=== PATIENT | male | born 1935 | race African-American/Black ===

== ENCOUNTER 2018-12-29 17:03 | Inpatient (IN) | payer MEDICARE, MEDICAID ==
--- NOTE | 2018-12-29 17:48 | ED Physician Chart ---
ED Chief Complaint/HPI - Patient Information Date Seen:: 12/29/18 Time Seen:: 17:25 Chief Complaint:: Agitation History of Present Illness:: onset x 3 days of agitation and aggressive behavior; no report of trauma, SIs, H /As, neck pain, C/P, SOB, Abd. Pain, or urinary s/s Allergies:: Allergies Allergy/AdvReac Type Severity Reaction Status Date / Time Penicillins [PCN] Allergy Verified 12/29/18 17:28 Vitals:: Vital Signs - 8 hr 12/29/18 17:29 Temp 97.9 F HR 53 RR 18 BP 117/77 O2 Sat % 97 Historian:: Patient, EMS Review:: Nurse's Note Reviewed, Old Chart Reviewed, EMS run form Reviewed ED Review of Systems - Review of Systems General/Constitutional: No fever, No chills, No weight loss, No weakness, No diaphoresis, No edema, No loss of appetite Skin: No skin lesions, No rash, No bruising Head: No headache, No light-headedness Eyes: No loss of vision, No pain, No diplopia ENT: No earache, No nasal drainage, No sore throat, No tinnitus Neck: No neck pain, No swelling, No thyromegaly, No stiffness, No mass noted Cardio Vascular: No chest pain, No palpitations, No PND, No orthopnea, No edema Pulmonary: No SOB, No cough, No sputum, No wheezing GI: No nausea, No vomiting, No diarrhea, No pain, No melena, No hematochezia, No constipation, No hematemesis G/U: No dysuria, No frequency, No hematuria, No nacturia Musculoskeletal: No bone or joint pain, No back pain, No muscle pain Endocrine: No polyuria, No polydipsia Psychiatric: Prior psych history, No depression, Anxiety, No suicidal ideation, No homicidal ideation, No auditory hallucination, No visual hallucination Hematopoietic: No bruising, No lymphadenopathy Allergic/Immuno: No urticaria, No angioedema Neurological: No syncope, No focal symptoms, No weakness, No paresthesia, No headache, No seizure, No dizziness, No confusion, No vertigo ED Past Medical History - Past Medical History Obtainable: Yes Past Medical History: HTN Family History: HTN Social History: Non Smoker, No Alcohol, No Drug Use, Single, Care Facility Surgical History: None Psychiatricy History: Bipolar Medication: Reviewed ED Physical Exam - Physical Examination General/Constitutional: Awake, Well-developed, well-nourished, Alert, No distress, GCS 15, Non-toxic appearing, Ambulatory Head: Atraumatic Eyes: Lids, conjuctiva normal, PERRL, EOMI Skin: Nl inspection, No rash, No skin lesions, No ecchymosis, Well hydrated, No lymphadenopathy ENMT: External ears, nose nl, TM canals nl, Nasal exam nl, Lips, teeth, gums nl , Oropharynx nl, Tonsils nl Neck: Nontender, Full ROM w/o pain, No JVD, No nuchal rigidity, No bruit, No mass, No stridor Respiratory: Nl effort/Exclusion, Clear to Auscultation, No Wheeze/Rhonchi/Rales Cardio Vascular: RRR, No murmur, gallop, rubs, NL S1 S2, Carotid/Femoral/Distal pulses equal bilaterally GI: No tenderness/rebounding/guarding, No organomegaly, No hernia, Normal BS's, Nondistended, No mass/bruits, No McBurney tenderness : No CVA tenderness Extremities: No tenderness or effusion, Full ROM, normal strength in all extremities, No edema, Normal digits & nails Neuro/Psych: Alert/oriented, DTR's symmetric, Normal sensory exam, Normal motor strength, Judgement/insight normal, Mood normal, Normal gait, No focal deficits Other Neuro/Psych comments:: + Psychomotor Agitation; no SIs; Mood/Affect: Labile Misc: Normal back, No paraspinal tenderness ED Labs/Radiology/EKG Results - Lab Results Comments:: Reviewed - EKG Interpretations EKG Time:: 17:42 Rate & Rhythm: 64; NSR Comments:: PVCs; non-specific st-t changes ED Septic Shock - . Is Septic Shock (SBP<90, OR Lactate>4 mmol\L) present?: No - <6hrs of presentation: Vital Signs: Vital Signs - 8 hr 12/29/18 17:29 Temp 97.9 F HR 53 RR 18 BP 117/77 O2 Sat % 97 ED Reassessment (Disposition) - Reassessment Reassessment Condition:: Improved - Diagnosis Diagnosis:: Agitation; Medical Clearance; Bipolar Disorder - Aftercare/Follow up Instructions Aftercare/Follow-Up Instructions:: Counseled pt regarding lab results/diagnosis & need follow up, Counseled pt & family regarding lab results/diagnosis & need follow up - Patient Disposition Discharge/Transfer:: Acute Care w/in this hosp Admitted to:: [facility] Condition at Disposition:: Stable, Improved
[2018-12-29 18:30] LABS: % BASOPHILS 0.7 % (0.0-2.0); % EOSINOPHILS 1.8 % (0.0-5.0); % LYMPHOCYTES 21.9 % (20.0-50.0); % MONOCYTES 7.5 % (2.0-10.0); % NEUTROPHILS 68.1 % (40.0-80.0); BASOPHILE ABSOLUTE 0.1 Th/cumm (0-0.2); EOSINOPHILE ABSOLUTE 0.1 Th/cmm (0.1-0.4); HEMATOCRIT 44.5 % (41.0-60); HEMOGLOBIN 14.6 gm/dL (12-16); LYMPHOCYTE ABSOLUTE 1.6 Th/cmm (1.5-3.0); MEAN CELL VOLUME 83.9 fl (80-99); MEAN CORPUSCULAR HEMOGLOBIN 27.5 pg (27.0-31.0); MEAN CORPUSCULAR HGB CONC 32.8 pg (28.0-36.0); MEAN PLATELET VOLUME 6.8 fl; MONOCYTE ABSOLUTE 0.6 Th/cmm (0.3-1.0); PLATELET COUNT 232 Th/cmm (150-400); RED CELL DISTRIBUTION WIDTH 14.8 % (11.5-20.0); WHITE BLOOD COUNT 7.4 Th/cmm (4.8-10.8)
[2018-12-29 18:54] LABS: ALBUMIN 3.6 gm/dL (4.2-5.5); ALKALINE PHOSPHATASE 74 U/L (34-104); ANION GAP 12.2 (7.0-16.0); BILIRUBIN,TOTAL 0.4 mg/dL (0.3-1.0); BUN - UREA NITROGEN 16 mg/dL (7-25); CALCIUM SERUM 9.7 mg/dL (8.6-10.3); CARBON DIOXIDE 30.4 mEq/L (21.0-31.0); CHLORIDE 106 mEq/L (98-107); CHOLESTEROL 119 mg/dL (<200); CREATININE - SERUM 1.2 mg/dL (0.7-1.3); GLUCOSE 102 mg/dL (70-105); HDL -HIGH DENSITY LIPOPROTEIN 41 mg/dL (23-92); POTASSIUM SERUM 4.6 mEq/L (3.5-5.1); SGOT 14 U/L (13-39); SGPT/ALT 10 U/L (7-52); SODIUM SERUM 144 mEq/L (136-145); TOTAL PROTEIN,SERUM 7.1 gm/dL (6.0-8.3); TRIGLYCERIDES 112 mg/dL (<150)
[2018-12-29 18:55] LABS: ACETAMINOPHEN < 10.0 ug/mL (10.0-30.0); SALICYLATES (ASPIRIN) < 25.0 mg/L (30.0-100.0)
[2018-12-29 20:51] VITALS: BP 156/74
[2018-12-29] MEDS ORDERED: Magnesium Hydroxide (MOM) 30 mL UDC PO PRN (22:35)
[2018-12-30] MEDS: Pantoprazole 40 mg EC Tab PO SCH (06:48)
[2018-12-30] MEDS: Multivitamin Tab PO SCH (08:44)
[2018-12-30] MEDS: Aspirin 81mg Chewable Tab PO SCH (08:45)
[2018-12-30] MEDS: Apixaban 5 MG TABLET PO SCH ×3 (08:49→16:26)
[2018-12-30] MEDS: Vitamin B Complex w/Vitamin C Tab PO SCH (08:57)
[2018-12-30] MEDS ORDERED: Potassium Chloride 20 mEq ER Tab PO SCH (09:00)
--- NOTE | 2018-12-30 15:30 | History & Physical ---
ADMIT DATE: 12/29/2018 CHIEF COMPLAINT: Medical evaluation and clearance. HISTORY OF PRESENT ILLNESS: An 83-year-old male with history of right lower extremity DVT, atrial fibrillation, CHF, seizure and BPH, dementia, admitted under the service of Dr. Wise. The patient denies chest pain, shortness of breath. PAST MEDICAL HISTORY: As mentioned in history of present illness. PAST SURGICAL HISTORY: Unable to obtain from the patient. ALLERGIES: PENICILLIN. MEDICATIONS: Tylenol, Eliquis, amiodarone, aspirin, vitamin D3, Colace, Aricept, Avodart, Lasix and potassium, ___, Keppra, magnesium, Namenda, omeprazole, CellCept, vitamin D complex. FAMILY HISTORY: Noncontributory. SOCIAL HISTORY: The patient is a jail patient requiring 24-hour total care. REVIEW OF SYSTEMS: This is limited to the patient's current mental state. We will try to obtain more detailed review of system ____ family members. 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 We will also try to get information from nursing staff at the facility [facility] [phone]. PHYSICAL EXAMINATION: VITAL SIGNS: Blood pressure 133/78, respirations 20, pulse 57-70, temperature 97.8. GENERAL: Elderly male who appears his stated age. NECK: Supple. No mass. LUNGS: Decreased breath sounds, few rhonchi. HEART: Irregular regular. Systolic ejection murmur. ABDOMEN: Soft, globular. EXTREMITIES: Positive excoriations. NEUROLOGIC: Positive contracture. LABORATORY DATA: WBC 7.4, hemoglobin 14, platelets 232. Sodium 140, potassium 4.6, BUN 16, creatinine 1.2. Albumin 3.6, pulse 119. ASSESSMENT AND PLAN: Dementia and a history of DVT, right lower extremity for exacerbation, CHF, seizure, BPH, GERD. Continue the patient on low sodium, low cholesterol diet, continue on anticoagulation, ____ bleeding. Continue antiepileptic medication. Continue providing him and we will discontinue on potassium, continue on diuretic for now. We will follow the patient closely. JOB# [id number]
[2018-12-31] MEDS: Pantoprazole 40 mg EC Tab PO SCH (06:40)
[2018-12-31] MEDS: Vitamin B Complex w/Vitamin C Tab PO SCH (09:08)
[2018-12-31] MEDS: Aspirin 81mg Chewable Tab PO SCH (09:09)
[2018-12-31] MEDS: Multivitamin Tab PO SCH (09:17)
[2018-12-31] MEDS: Apixaban 5 MG TABLET PO SCH ×2 (09:40→16:42)
--- NOTE | 2018-12-31 11:47 | Internal Medicine Prog Note ---
Internal Medicine Subjective - Subjective Patient seen and examined:: with staff, chart reviewed Patient is:: awake, verbal, interactive, in bed Per staff patient has:: no adverse event, no episodes of fall, tolerating meds Internal Medicine Objective - Results Result Diagrams: 12/29/18 18:17 12/29/18 18:17 Recent Labs: Laboratory Last Values WBC 7.4 Th/cmm (4.8-10.8) 12/29/18 18:17 RBC 5.30 Mil/cmm (3.80-5.80) 12/29/18 18:17 Hgb 14.6 gm/dL (12-16) 12/29/18 18:17 Hct 44.5 % (41.0-60) 12/29/18 18:17 MCV 83.9 fl (80-99) 12/29/18 18:17 MCH 27.5 pg (27.0-31.0) 12/29/18 18:17 MCHC Differential 32.8 pg (28.0-36.0) 12/29/18 18:17 RDW 14.8 % (11.5-20.0) 12/29/18 18:17 Plt Count 232 Th/cmm (150-400) 12/29/18 18:17 MPV 6.8 fl 12/29/18 18:17 Neutrophils % 68.1 % (40.0-80.0) 12/29/18 18:17 Lymphocytes % 21.9 % (20.0-50.0) 12/29/18 18:17 Monocytes % 7.5 % (2.0-10.0) 12/29/18 18:17 Eosinophils % 1.8 % (0.0-5.0) 12/29/18 18:17 Basophils % 0.7 % (0.0-2.0) 12/29/18 18:17 Sodium 144 mEq/L (136-145) 12/29/18 18:17 Potassium 4.6 mEq/L (3.5-5.1) 12/29/18 18:17 Chloride 106 mEq/L (98-107) 12/29/18 18:17 Carbon Dioxide 30.4 mEq/L (21.0-31.0) 12/29/18 18:17 Anion Gap 12.2 (7.0-16.0) 12/29/18 18:17 BUN 16 mg/dL (7-25) 12/29/18 18:17 Creatinine 1.2 mg/dL (0.7-1.3) 12/29/18 18:17 Est GFR ( Amer) TNP 12/29/18 18:17 Est GFR (Non-Af Amer) TNP 12/29/18 18:17 BUN/Creatinine Ratio 13.3 12/29/18 18:17 Glucose 102 mg/dL (70-105) 12/29/18 18:17 Calcium 9.7 mg/dL (8.6-10.3) 12/29/18 18:17 Total Bilirubin 0.4 mg/dL (0.3-1.0) 12/29/18 18:17 AST 14 U/L (13-39) 12/29/18 18:17 ALT 10 U/L (7-52) 12/29/18 18:17 Alkaline Phosphatase 74 U/L (34-104) 12/29/18 18:17 Troponin I 0.01 ng/mL (0.01-0.05) 12/29/18 18:17 Total Protein 7.1 gm/dL (6.0-8.3) 12/29/18 18:17 Albumin 3.6 gm/dL (4.2-5.5) L 12/29/18 18:17 Globulin 3.5 gm/dL 12/29/18 18:17 Albumin/Globulin Ratio 1.0 (1.0-1.8) 12/29/18 18:17 Triglycerides 112 mg/dL (<150) 12/29/18 18:17 Cholesterol 119 mg/dL (<200) 12/29/18 18:17 LDL Cholesterol Direct 38 mg/dL (75-193) L 12/29/18 18:17 HDL Cholesterol 41 mg/dL (23-92) 12/29/18 18:17 TSH 1.50 uIU/ml (0.34-5.60) 12/29/18 18:17 Salicylates < 25.0 mg/L (30.0-100.0) L 12/29/18 18:17 Acetaminophen < 10.0 ug/mL (10.0-30.0) L 12/29/18 18:17 Ethyl Alcohol < 10 mg/dL (0-10) 12/29/18 18:17 - Physical Exam Vitals and I&O: Vital Signs Temp 97.8 F 12/31/18 06:50 Pulse 50 12/31/18 06:50 Resp 18 12/31/18 06:50 BP 112/73 12/31/18 09:08 Pulse Ox 98 12/31/18 06:50 Intake & Output 12/30/18 12/31/18 12/31/18 18:59 06:59 18:59 Intake Total 480 Balance 480 Intake: Oral 480 Other: # Voids 2 # Bowel Movements 0 Active Medications: Current Medications Acetaminophen (Tylenol) 650 mg PO Q6H PRN PRN Reason: pain/fever>100 Amiodarone HCl (Cordarone) 200 mg PO DAILY [facility] Stop: 02/28/19 08:59 Last Admin: 12/31/18 09:09 Dose: Not Given Aspirin (Aspirin Chewable) 81 mg PO DAILY [facility] Stop: 02/28/19 08:59 Last Admin: 12/31/18 09:09 Dose: 81 mg Cholecalciferol (Vitamin D3) 2,000 iu PO DAILY [facility] Stop: 02/28/19 08:59 Last Admin: 12/31/18 09:08 Dose: 2,000 iu Docusate Sodium (Colace) 100 mg PO BID [facility] Stop: 02/28/19 08:59 Last Admin: 12/31/18 09:08 Dose: 100 mg Donepezil HCl (Aricept) 5 mg PO HS [facility] Stop: 02/27/19 20:59 Last Admin: 12/30/18 20:32 Dose: 5 mg Dutasteride (Avodart) 0.5 mg PO DAILY [facility]; Protocol Stop: 02/28/19 08:59 Last Admin: 12/31/18 09:40 Dose: 0.5 mg Furosemide (Lasix) 20 mg PO DAILY [facility] Stop: 02/28/19 08:59 Last Admin: 12/31/18 09:08 Dose: 20 mg Hydrocortisone (Anusol-Hc) 25 mg RC HS PRN PRN Reason: Hemorrhoids Stop: 02/27/19 22:34 Levetiracetam (Keppra) 500 mg PO BID [facility] Stop: 02/28/19 08:59 Last Admin: 12/31/18 09:08 Dose: 500 mg Lorazepam (Ativan) 0.5 mg PO Q4HR PRN; Protocol PRN Reason: Anxiety Stop: 01/28/19 20:54 Magnesium Hydroxide (Milk Of Magnesia) 30 ml PO DAILY PRN PRN Reason: Constipation Stop: 02/27/19 22:34 Magnesium Oxide (Mag-Oxide) 400 mg PO DAILY [facility] Stop: 02/28/19 08:59 Last Admin: 12/31/18 09:09 Dose: 400 mg Memantine (Namenda) 10 mg PO BID [facility] Stop: 02/28/19 08:59 Last Admin: 12/31/18 09:09 Dose: 10 mg Multivitamins/Vitamin C (Theragran) 1 tab PO DAILY [facility] Stop: 02/28/19 08:59 Last Admin: 12/31/18 09:17 Dose: 1 tab Pantoprazole Sodium (Protonix) 40 mg PO QDAC [facility] Stop: 02/28/19 07:29 Last Admin: 12/31/18 06:40 Dose: 40 mg Tamsulosin HCl (Flomax) 0.4 mg PO HS [facility] Stop: 02/28/19 20:59 Last Admin: 12/30/18 20:32 Dose: 0.4 mg Vitamin B Complex/Vit C/Folic Acid (Vitamin B Complex W/Vitamin C) 1 tab PO DAILY [facility] Stop: 02/28/19 08:59 Last Admin: 12/31/18 09:08 Dose: 1 tab Zolpidem Tartrate (Ambien) 5 mg PO HS PRN PRN Reason: Insomnia Stop: 02/27/19 20:54 Last Admin: 12/29/18 21:56 Dose: 5 mg General: demented HEENT: NC/AT, EOMI Neck: Supple Lungs: CTAB Cardiovascular: RRR, Normal S1, Normal S2, with murmur Abdomen: soft, globular, positive bowel sound Extremities: excoriation, contracture Neurological: no change Internal Medicine Assmt/Plan - Assessment Assessment: ASSESSMENT AND PLAN: Dementia and a history of DVT, right lower extremity for exacerbation, CHF, seizure, BPH, GERD. - Plan Plan: PLAN: Continue the patient on low sodium, low cholesterol diet, continue on anticoagulation, ___monitor for_ bleeding. Continue antiepileptic medication. Continue providing him and we will discontinue on potassium, continue on diuretic for now. We will follow the patient closely.
[2019-01-01] MEDS: Pantoprazole 40 mg EC Tab PO SCH (06:43)
[2019-01-01] MEDS: Vitamin B Complex w/Vitamin C Tab PO SCH (08:34)
[2019-01-01] MEDS: Apixaban 5 MG TABLET PO SCH ×2 (08:34→16:43)
[2019-01-01] MEDS: Multivitamin Tab PO SCH (08:37)
[2019-01-01] MEDS: Aspirin 81mg Chewable Tab PO SCH (08:38)
--- NOTE | 2019-01-01 10:34 | Internal Medicine Prog Note ---
Internal Medicine Subjective - Subjective Patient seen and examined:: with staff, chart reviewed Patient is:: awake, verbal, interactive, in bed Per staff patient has:: no adverse event, no episodes of fall, tolerating meds Internal Medicine Objective - Results Result Diagrams: 12/29/18 18:17 12/29/18 18:17 Recent Labs: Laboratory Last Values WBC 7.4 Th/cmm (4.8-10.8) 12/29/18 18:17 RBC 5.30 Mil/cmm (3.80-5.80) 12/29/18 18:17 Hgb 14.6 gm/dL (12-16) 12/29/18 18:17 Hct 44.5 % (41.0-60) 12/29/18 18:17 MCV 83.9 fl (80-99) 12/29/18 18:17 MCH 27.5 pg (27.0-31.0) 12/29/18 18:17 MCHC Differential 32.8 pg (28.0-36.0) 12/29/18 18:17 RDW 14.8 % (11.5-20.0) 12/29/18 18:17 Plt Count 232 Th/cmm (150-400) 12/29/18 18:17 MPV 6.8 fl 12/29/18 18:17 Neutrophils % 68.1 % (40.0-80.0) 12/29/18 18:17 Lymphocytes % 21.9 % (20.0-50.0) 12/29/18 18:17 Monocytes % 7.5 % (2.0-10.0) 12/29/18 18:17 Eosinophils % 1.8 % (0.0-5.0) 12/29/18 18:17 Basophils % 0.7 % (0.0-2.0) 12/29/18 18:17 Sodium 144 mEq/L (136-145) 12/29/18 18:17 Potassium 4.6 mEq/L (3.5-5.1) 12/29/18 18:17 Chloride 106 mEq/L (98-107) 12/29/18 18:17 Carbon Dioxide 30.4 mEq/L (21.0-31.0) 12/29/18 18:17 Anion Gap 12.2 (7.0-16.0) 12/29/18 18:17 BUN 16 mg/dL (7-25) 12/29/18 18:17 Creatinine 1.2 mg/dL (0.7-1.3) 12/29/18 18:17 Est GFR ( Amer) TNP 12/29/18 18:17 Est GFR (Non-Af Amer) TNP 12/29/18 18:17 BUN/Creatinine Ratio 13.3 12/29/18 18:17 Glucose 102 mg/dL (70-105) 12/29/18 18:17 Calcium 9.7 mg/dL (8.6-10.3) 12/29/18 18:17 Total Bilirubin 0.4 mg/dL (0.3-1.0) 12/29/18 18:17 AST 14 U/L (13-39) 12/29/18 18:17 ALT 10 U/L (7-52) 12/29/18 18:17 Alkaline Phosphatase 74 U/L (34-104) 12/29/18 18:17 Troponin I 0.01 ng/mL (0.01-0.05) 12/29/18 18:17 Total Protein 7.1 gm/dL (6.0-8.3) 12/29/18 18:17 Albumin 3.6 gm/dL (4.2-5.5) L 12/29/18 18:17 Globulin 3.5 gm/dL 12/29/18 18:17 Albumin/Globulin Ratio 1.0 (1.0-1.8) 12/29/18 18:17 Triglycerides 112 mg/dL (<150) 12/29/18 18:17 Cholesterol 119 mg/dL (<200) 12/29/18 18:17 LDL Cholesterol Direct 38 mg/dL (75-193) L 12/29/18 18:17 HDL Cholesterol 41 mg/dL (23-92) 12/29/18 18:17 TSH 1.50 uIU/ml (0.34-5.60) 12/29/18 18:17 Salicylates < 25.0 mg/L (30.0-100.0) L 12/29/18 18:17 Acetaminophen < 10.0 ug/mL (10.0-30.0) L 12/29/18 18:17 Ethyl Alcohol < 10 mg/dL (0-10) 12/29/18 18:17 RPR NONREACTIVE (NONREACTIVE) 12/29/18 18:17 - Physical Exam Vitals and I&O: Vital Signs Temp 96.4 F 01/01/19 06:51 Pulse 55 01/01/19 08:38 Resp 20 01/01/19 06:51 BP 117/55 01/01/19 08:37 Pulse Ox 96 01/01/19 06:51 Intake & Output 12/31/18 01/01/19 01/01/19 18:59 06:59 18:59 Intake Total 600 120 Balance 600 120 Intake: Oral 600 120 Other: # Voids 2 1 # Bowel Movements 0 Active Medications: Current Medications Acetaminophen (Tylenol) 650 mg PO Q6H PRN PRN Reason: pain/fever>100 Amiodarone HCl (Cordarone) 200 mg PO DAILY [facility] Stop: 02/28/19 08:59 Last Admin: 01/01/19 08:38 Dose: Not Given Aspirin (Aspirin Chewable) 81 mg PO DAILY [facility] Stop: 02/28/19 08:59 Last Admin: 01/01/19 08:38 Dose: 81 mg Cholecalciferol (Vitamin D3) 2,000 iu PO DAILY [facility] Stop: 02/28/19 08:59 Last Admin: 01/01/19 08:35 Dose: 2,000 iu Docusate Sodium (Colace) 100 mg PO BID [facility] Stop: 02/28/19 08:59 Last Admin: 01/01/19 08:35 Dose: 100 mg Donepezil HCl (Aricept) 5 mg PO HS [facility] Stop: 02/27/19 20:59 Last Admin: 12/31/18 21:44 Dose: 5 mg Dutasteride (Avodart) 0.5 mg PO DAILY [facility]; Protocol Stop: 02/28/19 08:59 Last Admin: 01/01/19 08:38 Dose: 0.5 mg Furosemide (Lasix) 20 mg PO DAILY [facility] Stop: 02/28/19 08:59 Last Admin: 01/01/19 08:37 Dose: 20 mg Hydrocortisone (Anusol-Hc) 25 mg RC HS PRN PRN Reason: Hemorrhoids Stop: 02/27/19 22:34 Levetiracetam (Keppra) 500 mg PO BID [facility] Stop: 02/28/19 08:59 Last Admin: 01/01/19 08:36 Dose: 500 mg Lorazepam (Ativan) 0.5 mg PO Q4HR PRN; Protocol PRN Reason: Anxiety Stop: 01/28/19 20:54 Magnesium Hydroxide (Milk Of Magnesia) 30 ml PO DAILY PRN PRN Reason: Constipation Stop: 02/27/19 22:34 Magnesium Oxide (Mag-Oxide) 400 mg PO DAILY [facility] Stop: 02/28/19 08:59 Last Admin: 01/01/19 08:37 Dose: 400 mg Medroxyprogesterone Acetate (Provera) 5 mg PO DAILY [facility]; Protocol Stop: 03/02/19 08:59 Last Admin: 01/01/19 08:36 Dose: 5 mg Memantine (Namenda) 10 mg PO BID [facility] Stop: 02/28/19 08:59 Last Admin: 01/01/19 08:36 Dose: 10 mg Multivitamins/Vitamin C (Theragran) 1 tab PO DAILY [facility] Stop: 02/28/19 08:59 Last Admin: 01/01/19 08:37 Dose: 1 tab Pantoprazole Sodium (Protonix) 40 mg PO QDAC [facility] Stop: 02/28/19 07:29 Last Admin: 01/01/19 06:43 Dose: 40 mg Tamsulosin HCl (Flomax) 0.4 mg PO HS [facility] Stop: 02/28/19 20:59 Last Admin: 12/31/18 21:44 Dose: 0.4 mg Vitamin B Complex/Vit C/Folic Acid (Vitamin B Complex W/Vitamin C) 1 tab PO DAILY [facility] Stop: 02/28/19 08:59 Last Admin: 01/01/19 08:34 Dose: 1 tab Zolpidem Tartrate (Ambien) 5 mg PO HS PRN PRN Reason: Insomnia Stop: 02/27/19 20:54 Last Admin: 12/29/18 21:56 Dose: 5 mg General: demented HEENT: NC/AT, EOMI Neck: Supple Lungs: CTAB Cardiovascular: RRR, Normal S1, Normal S2, with murmur Abdomen: soft, globular, positive bowel sound Extremities: excoriation, contracture Neurological: no change Internal Medicine Assmt/Plan - Assessment Assessment: ASSESSMENT AND PLAN: Dementia and a history of DVT, right lower extremity for exacerbation, CHF, seizure, BPH, GERD. - Plan Plan: PLAN: Continue the patient on low sodium, low cholesterol diet, continue on anticoagulation, ___monitor for_ bleeding. Continue antiepileptic medication. Continue providing him and we will discontinue on potassium, continue on diuretic for now. We will follow the patient closely.
[2019-01-02] MEDS: Pantoprazole 40 mg EC Tab PO SCH (06:43)
[2019-01-02] MEDS: Multivitamin Tab PO SCH (09:06)
[2019-01-02] MEDS: Vitamin B Complex w/Vitamin C Tab PO SCH (09:06)
[2019-01-02] MEDS: Apixaban 5 MG TABLET PO SCH ×2 (09:07→17:58)
[2019-01-02] MEDS: Aspirin 81mg Chewable Tab PO SCH (09:07)
--- NOTE | 2019-01-02 10:18 | Internal Medicine Prog Note ---
Internal Medicine Subjective - Subjective Service Date: 01/02/19 Patient is:: awake, verbal, interactive, in bed Per staff patient has:: no adverse event, no episodes of fall, tolerating meds Internal Medicine Objective - Results Result Diagrams: 12/29/18 18:17 12/29/18 18:17 Recent Labs: Laboratory Last Values WBC 7.4 Th/cmm (4.8-10.8) 12/29/18 18:17 RBC 5.30 Mil/cmm (3.80-5.80) 12/29/18 18:17 Hgb 14.6 gm/dL (12-16) 12/29/18 18:17 Hct 44.5 % (41.0-60) 12/29/18 18:17 MCV 83.9 fl (80-99) 12/29/18 18:17 MCH 27.5 pg (27.0-31.0) 12/29/18 18:17 MCHC Differential 32.8 pg (28.0-36.0) 12/29/18 18:17 RDW 14.8 % (11.5-20.0) 12/29/18 18:17 Plt Count 232 Th/cmm (150-400) 12/29/18 18:17 MPV 6.8 fl 12/29/18 18:17 Neutrophils % 68.1 % (40.0-80.0) 12/29/18 18:17 Lymphocytes % 21.9 % (20.0-50.0) 12/29/18 18:17 Monocytes % 7.5 % (2.0-10.0) 12/29/18 18:17 Eosinophils % 1.8 % (0.0-5.0) 12/29/18 18:17 Basophils % 0.7 % (0.0-2.0) 12/29/18 18:17 Sodium 144 mEq/L (136-145) 12/29/18 18:17 Potassium 4.6 mEq/L (3.5-5.1) 12/29/18 18:17 Chloride 106 mEq/L (98-107) 12/29/18 18:17 Carbon Dioxide 30.4 mEq/L (21.0-31.0) 12/29/18 18:17 Anion Gap 12.2 (7.0-16.0) 12/29/18 18:17 BUN 16 mg/dL (7-25) 12/29/18 18:17 Creatinine 1.2 mg/dL (0.7-1.3) 12/29/18 18:17 Est GFR ( Amer) TNP 12/29/18 18:17 Est GFR (Non-Af Amer) TNP 12/29/18 18:17 BUN/Creatinine Ratio 13.3 12/29/18 18:17 Glucose 102 mg/dL (70-105) 12/29/18 18:17 Calcium 9.7 mg/dL (8.6-10.3) 12/29/18 18:17 Total Bilirubin 0.4 mg/dL (0.3-1.0) 12/29/18 18:17 AST 14 U/L (13-39) 12/29/18 18:17 ALT 10 U/L (7-52) 12/29/18 18:17 Alkaline Phosphatase 74 U/L (34-104) 12/29/18 18:17 Troponin I 0.01 ng/mL (0.01-0.05) 12/29/18 18:17 Total Protein 7.1 gm/dL (6.0-8.3) 12/29/18 18:17 Albumin 3.6 gm/dL (4.2-5.5) L 12/29/18 18:17 Globulin 3.5 gm/dL 12/29/18 18:17 Albumin/Globulin Ratio 1.0 (1.0-1.8) 12/29/18 18:17 Triglycerides 112 mg/dL (<150) 12/29/18 18:17 Cholesterol 119 mg/dL (<200) 12/29/18 18:17 LDL Cholesterol Direct 38 mg/dL (75-193) L 12/29/18 18:17 HDL Cholesterol 41 mg/dL (23-92) 12/29/18 18:17 TSH 1.50 uIU/ml (0.34-5.60) 12/29/18 18:17 Salicylates < 25.0 mg/L (30.0-100.0) L 12/29/18 18:17 Acetaminophen < 10.0 ug/mL (10.0-30.0) L 12/29/18 18:17 Ethyl Alcohol < 10 mg/dL (0-10) 12/29/18 18:17 RPR NONREACTIVE (NONREACTIVE) 12/29/18 18:17 - Physical Exam Vitals and I&O: Vital Signs Temp 96.3 F 01/02/19 01:33 Pulse 64 01/02/19 09:07 Resp 19 01/02/19 01:33 BP 110/68 01/02/19 09:08 Pulse Ox 97 01/02/19 01:33 Intake & Output 01/01/19 01/02/19 01/02/19 18:59 06:59 18:59 Intake Total 1300 100 Balance 1300 100 Intake: Oral 1300 100 Other: # Voids 3 1 # Bowel Movements 0 Active Medications: Current Medications Acetaminophen (Tylenol) 650 mg PO Q6H PRN PRN Reason: pain/fever>100 Amiodarone HCl (Cordarone) 200 mg PO DAILY [facility] Stop: 02/28/19 08:59 Last Admin: 01/02/19 09:07 Dose: 200 mg Aspirin (Aspirin Chewable) 81 mg PO DAILY [facility] Stop: 02/28/19 08:59 Last Admin: 01/02/19 09:07 Dose: 81 mg Cholecalciferol (Vitamin D3) 2,000 iu PO DAILY [facility] Stop: 02/28/19 08:59 Last Admin: 01/02/19 09:07 Dose: 2,000 iu Docusate Sodium (Colace) 100 mg PO BID [facility] Stop: 02/28/19 08:59 Last Admin: 01/02/19 09:06 Dose: 100 mg Donepezil HCl (Aricept) 5 mg PO HS [facility] Stop: 02/27/19 20:59 Last Admin: 01/01/19 21:01 Dose: 5 mg Dutasteride (Avodart) 0.5 mg PO DAILY [facility]; Protocol Stop: 02/28/19 08:59 Last Admin: 01/02/19 09:07 Dose: 0.5 mg Furosemide (Lasix) 20 mg PO DAILY [facility] Stop: 02/28/19 08:59 Last Admin: 01/02/19 09:08 Dose: 20 mg Hydrocortisone (Anusol-Hc) 25 mg RC HS PRN PRN Reason: Hemorrhoids Stop: 02/27/19 22:34 Levetiracetam (Keppra) 500 mg PO BID [facility] Stop: 02/28/19 08:59 Last Admin: 01/02/19 09:07 Dose: 500 mg Lorazepam (Ativan) 0.5 mg PO Q4HR PRN; Protocol PRN Reason: Anxiety Stop: 01/28/19 20:54 Magnesium Hydroxide (Milk Of Magnesia) 30 ml PO DAILY PRN PRN Reason: Constipation Stop: 02/27/19 22:34 Magnesium Oxide (Mag-Oxide) 400 mg PO DAILY [facility] Stop: 02/28/19 08:59 Last Admin: 01/02/19 09:09 Dose: 400 mg Medroxyprogesterone Acetate (Provera) 5 mg PO DAILY [facility]; Protocol Stop: 03/02/19 08:59 Last Admin: 01/02/19 09:07 Dose: 5 mg Memantine (Namenda) 10 mg PO BID [facility] Stop: 02/28/19 08:59 Last Admin: 01/02/19 09:07 Dose: 10 mg Multivitamins/Vitamin C (Theragran) 1 tab PO DAILY [facility] Stop: 02/28/19 08:59 Last Admin: 01/02/19 09:06 Dose: 1 tab Pantoprazole Sodium (Protonix) 40 mg PO QDAC [facility] Stop: 02/28/19 07:29 Last Admin: 01/02/19 06:43 Dose: 40 mg Tamsulosin HCl (Flomax) 0.4 mg PO HS [facility] Stop: 02/28/19 20:59 Last Admin: 01/01/19 21:01 Dose: 0.4 mg Vitamin B Complex/Vit C/Folic Acid (Vitamin B Complex W/Vitamin C) 1 tab PO DAILY [facility] Stop: 02/28/19 08:59 Last Admin: 01/02/19 09:06 Dose: 1 tab Zolpidem Tartrate (Ambien) 5 mg PO HS PRN PRN Reason: Insomnia Stop: 02/27/19 20:54 Last Admin: 12/29/18 21:56 Dose: 5 mg General: demented HEENT: NC/AT, EOMI Neck: Supple Lungs: CTAB Cardiovascular: RRR, Normal S1, Normal S2, with murmur Abdomen: soft, globular, positive bowel sound Extremities: excoriation, contracture Neurological: no change Internal Medicine Assmt/Plan - Assessment Assessment: Dementia and a history of DVT, right lower extremity for exacerbation, CHF, seizure, BPH, GERD. - Plan Plan: PLAN: Continue the patient on low sodium, low cholesterol diet, continue on anticoagulation, ___monitor for_ bleeding. Continue antiepileptic medication. Continue providing him and we will discontinue on potassium, continue on diuretic for now. We will follow the patient closely. Nutritional Asmnt/Malnutr-PDOC - Dietary Evaluation Malnutrition Findings (Please click <Entered> for more info): Nutritional Asmnt/Malnutrition Start: 01/02/19 09: 49 Text: Status: Active Freq: Protocol: Document 01/02/19 09:49 [facility] (Rec: 01/02/19 10:15 MMULDEQUAN TINSLEY- [email or web address]) Nutritional Asmnt/Malnutrition Patient General Information Nutritional Screening Moderate Risk Diagnosis Psychosis Pertinent Medical Hx/Surgical Hx right lower extremity DVT, atrial fibrillation, CHF, seizure, BPH, dementia Subjective Information Per nursing notes, patient selectively mute, answers questions with nodding. Current Diet Order/ Nutrition Support Mechanical soft, no added sodium Patient / S.O Not Indicated Pertinent Medications Vitamin D, Colace, lasix, MOM, Mag ox, Theragran, protonix, vitamin B complex with C Pertinent Labs (12/29) Albumin 3.6 Nutritional Hx/Data Height 5 ft 10 in Height (Calculated Centimeters) 177.8 Current Weight (lbs) 184 lb Weight (Calculated Kilograms) 83.5 Weight (Calculated Grams) 38722.0 [place] Body Weight 166 % [place] Body Weight 110 Body Mass Index (BMI) 26.4 Recent Weight Change No Weight Status Overweight GI Symptoms GI Symptoms None Last BM none noted since admission Difficult in: None Food Allergies No Cultural/Ethnic/Temple Belief none indicated Usual diet at home unknown Skin Integrity/Comment: Milind 14, intact Current %PO Fair (50-74%) Estimated Nutritional Goals BEE in Kcals: Using Current wt Calories/Kcals/Kg CBW 83.6kg 23-27 kcal/kg Kcals Calculated ~2298-0415 kcal/day Protein: Using Current wt Protein g/k.8-1 gm/kg Protein Calculated 65-85gm/day Fluid: ml ~5258-1443 ml/day Nutritional Problem 1. Problem Problem Inadequate oral intake related to Etiology Possible confusion/poor appetite aeb Signs/Symptoms: PO ranging 0-100% of meals, averaging ~50%. Intervention/Recommendation Comments 1. Continue mechanical soft, no added sodium diet as tolerated by patient. 2. Provide assistance with meals as needed and encourage oral intake. Intake seems to be improving. Re-evaluate need for supplements at F/U. Expected Outcomes/Goals Expected Outcomes/Goals Oral intake >75% of meals, weight stable, nutrition related labs WNL F/U MR
--- NOTE | 2019-01-02 11:23 | Progress Notes ---
DATE: SUBJECTIVE: The patient was resting in bed. When approached, the patient has a towel covered his face and head. The patient removed the towel from his face. The patient was not very verbal today. The patient indicated that he has been eating and sleeping okay. When asked why he has been masturbating and exposing himself at the facility where he was prior to coming here, the patient just shrugged his shoulder. When asked if he exposed himself here, the patient shook his head. When asked why he would do such a thing, the patient shrugged his shoulder. When asked if any family been here to see him, the patient shook his head. OBJECTIVE: The patient continued to be calm and pleasant and cooperative. The patient is less verbal today. The staff reported that the patient has been doing okay. The patient has been staying in bed most of the time. The patient ate well at breakfast, but not as much at lunchtime. Staff reported that the patient has been cooperative with care and treatment taking his medications. ASSESSMENT: Sexual disorder, not otherwise specified. Dementia, Alzheimer dementia with behavioral disturbance. The patient appeared to be doing okay at this time. PLAN: We will continue the patient on Provera and monitor the patient response to the medication. JOB# [id number]
--- NOTE | 2019-01-02 22:26 | Progress Notes ---
DATE: 01/02/2019 SUBJECTIVE: The patient was resting in bed, alert, pleasant. The patient did not have the towel covered his face and head like yesterday. When asked if he remembers seeing this science writer, the patient shook his head. The patient reported that he had breakfast and he slept pretty well. The patient denied any inappropriate sexual behavior. The patient indicated no friends or family visited since he has been here. The patient was not able to say where he was living prior to coming here. When asked if he had exposed himself or masturbated since he has been here, the patient denied. When asked why he did that at the facility, the patient shook his head. OBJECTIVE: The patient continued to be cooperative and pleasant. The patient smiled easily when talked to. The patient denied any hallucination or delusion. Staff reported that the patient has been doing okay, has been cooperative with care and treatment. The patient has been eating and sleeping well. ASSESSMENT: Sexual disorder, not otherwise specified; Alzheimer dementia with behavioral disturbance; impulse control disorder, not otherwise specified; personality change due to medical condition. The patient continued to be doing okay with no recurrent episodes of inappropriate sexual behavior here. PLAN: We will continue the patient on Provera and monitor any side effects. JOB# [id number] ENRIQUE
[2019-01-03] MEDS: Pantoprazole 40 mg EC Tab PO SCH (06:35)
[2019-01-03] MEDS: Apixaban 5 MG TABLET PO SCH ×2 (08:23→17:24)
[2019-01-03] MEDS: Aspirin 81mg Chewable Tab PO SCH (08:24)
[2019-01-03] MEDS: Multivitamin Tab PO SCH (08:27)
[2019-01-03] MEDS: Vitamin B Complex w/Vitamin C Tab PO SCH (08:27)
--- NOTE | 2019-01-03 16:04 | Internal Medicine Prog Note ---
Internal Medicine Subjective - Subjective Service Date: 01/03/19 Patient is:: awake, verbal, interactive, in bed Per staff patient has:: no adverse event, no episodes of fall, tolerating meds Internal Medicine Objective - Results Result Diagrams: 12/29/18 18:17 12/29/18 18:17 Recent Labs: Laboratory Last Values WBC 7.4 Th/cmm (4.8-10.8) 12/29/18 18:17 RBC 5.30 Mil/cmm (3.80-5.80) 12/29/18 18:17 Hgb 14.6 gm/dL (12-16) 12/29/18 18:17 Hct 44.5 % (41.0-60) 12/29/18 18:17 MCV 83.9 fl (80-99) 12/29/18 18:17 MCH 27.5 pg (27.0-31.0) 12/29/18 18:17 MCHC Differential 32.8 pg (28.0-36.0) 12/29/18 18:17 RDW 14.8 % (11.5-20.0) 12/29/18 18:17 Plt Count 232 Th/cmm (150-400) 12/29/18 18:17 MPV 6.8 fl 12/29/18 18:17 Neutrophils % 68.1 % (40.0-80.0) 12/29/18 18:17 Lymphocytes % 21.9 % (20.0-50.0) 12/29/18 18:17 Monocytes % 7.5 % (2.0-10.0) 12/29/18 18:17 Eosinophils % 1.8 % (0.0-5.0) 12/29/18 18:17 Basophils % 0.7 % (0.0-2.0) 12/29/18 18:17 Sodium 144 mEq/L (136-145) 12/29/18 18:17 Potassium 4.6 mEq/L (3.5-5.1) 12/29/18 18:17 Chloride 106 mEq/L (98-107) 12/29/18 18:17 Carbon Dioxide 30.4 mEq/L (21.0-31.0) 12/29/18 18:17 Anion Gap 12.2 (7.0-16.0) 12/29/18 18:17 BUN 16 mg/dL (7-25) 12/29/18 18:17 Creatinine 1.2 mg/dL (0.7-1.3) 12/29/18 18:17 Est GFR ( Amer) TNP 12/29/18 18:17 Est GFR (Non-Af Amer) TNP 12/29/18 18:17 BUN/Creatinine Ratio 13.3 12/29/18 18:17 Glucose 102 mg/dL (70-105) 12/29/18 18:17 Calcium 9.7 mg/dL (8.6-10.3) 12/29/18 18:17 Total Bilirubin 0.4 mg/dL (0.3-1.0) 12/29/18 18:17 AST 14 U/L (13-39) 12/29/18 18:17 ALT 10 U/L (7-52) 12/29/18 18:17 Alkaline Phosphatase 74 U/L (34-104) 12/29/18 18:17 Troponin I 0.01 ng/mL (0.01-0.05) 12/29/18 18:17 Total Protein 7.1 gm/dL (6.0-8.3) 12/29/18 18:17 Albumin 3.6 gm/dL (4.2-5.5) L 12/29/18 18:17 Globulin 3.5 gm/dL 12/29/18 18:17 Albumin/Globulin Ratio 1.0 (1.0-1.8) 12/29/18 18:17 Triglycerides 112 mg/dL (<150) 12/29/18 18:17 Cholesterol 119 mg/dL (<200) 12/29/18 18:17 LDL Cholesterol Direct 38 mg/dL (75-193) L 12/29/18 18:17 HDL Cholesterol 41 mg/dL (23-92) 12/29/18 18:17 TSH 1.50 uIU/ml (0.34-5.60) 12/29/18 18:17 Salicylates < 25.0 mg/L (30.0-100.0) L 12/29/18 18:17 Acetaminophen < 10.0 ug/mL (10.0-30.0) L 12/29/18 18:17 Ethyl Alcohol < 10 mg/dL (0-10) 12/29/18 18:17 RPR NONREACTIVE (NONREACTIVE) 12/29/18 18:17 - Physical Exam Vitals and I&O: Vital Signs Temp 97.7 F 01/03/19 04:53 Pulse 65 01/03/19 04:53 Resp 19 01/03/19 04:53 BP 103/65 01/03/19 04:53 Pulse Ox 97 01/03/19 04:53 Intake & Output 01/02/19 01/03/19 01/03/19 18:59 06:59 18:59 Intake Total 1200 480 Balance 1200 480 Intake: Oral 1200 480 Other: # Voids 4 2 # Bowel Movements 0 Active Medications: Current Medications Acetaminophen (Tylenol) 650 mg PO Q6H PRN PRN Reason: pain/fever>100 Amiodarone HCl (Cordarone) 200 mg PO DAILY [facility] Stop: 02/28/19 08:59 Last Admin: 01/03/19 08:23 Dose: Not Given Aspirin (Aspirin Chewable) 81 mg PO DAILY [facility] Stop: 02/28/19 08:59 Last Admin: 01/03/19 08:24 Dose: 81 mg Cholecalciferol (Vitamin D3) 2,000 iu PO DAILY [facility] Stop: 02/28/19 08:59 Last Admin: 01/03/19 08:24 Dose: 2,000 iu Docusate Sodium (Colace) 100 mg PO BID [facility] Stop: 02/28/19 08:59 Last Admin: 01/03/19 08:24 Dose: 100 mg Donepezil HCl (Aricept) 5 mg PO HS [facility] Stop: 02/27/19 20:59 Last Admin: 01/02/19 21:38 Dose: 5 mg Dutasteride (Avodart) 0.5 mg PO DAILY [facility]; Protocol Stop: 02/28/19 08:59 Last Admin: 01/03/19 08:24 Dose: 0.5 mg Furosemide (Lasix) 20 mg PO DAILY [facility] Stop: 02/28/19 08:59 Last Admin: 01/03/19 08:24 Dose: Not Given Hydrocortisone (Anusol-Hc) 25 mg RC HS PRN PRN Reason: Hemorrhoids Stop: 02/27/19 22:34 Levetiracetam (Keppra) 500 mg PO BID [facility] Stop: 02/28/19 08:59 Last Admin: 01/03/19 08:25 Dose: 500 mg Lorazepam (Ativan) 0.5 mg PO Q4HR PRN; Protocol PRN Reason: Anxiety Stop: 01/28/19 20:54 Magnesium Hydroxide (Milk Of Magnesia) 30 ml PO DAILY PRN PRN Reason: Constipation Stop: 02/27/19 22:34 Magnesium Oxide (Mag-Oxide) 400 mg PO DAILY [facility] Stop: 02/28/19 08:59 Last Admin: 01/03/19 08:25 Dose: 400 mg Medroxyprogesterone Acetate (Provera) 5 mg PO DAILY [facility]; Protocol Stop: 03/02/19 08:59 Last Admin: 01/03/19 08:26 Dose: 5 mg Memantine (Namenda) 10 mg PO BID [facility] Stop: 02/28/19 08:59 Last Admin: 01/03/19 08:27 Dose: 10 mg Multivitamins/Vitamin C (Theragran) 1 tab PO DAILY [facility] Stop: 02/28/19 08:59 Last Admin: 01/03/19 08:27 Dose: 1 tab Pantoprazole Sodium (Protonix) 40 mg PO QDAC [facility] Stop: 02/28/19 07:29 Last Admin: 01/03/19 06:35 Dose: 40 mg Tamsulosin HCl (Flomax) 0.4 mg PO HS [facility] Stop: 02/28/19 20:59 Last Admin: 01/02/19 21:38 Dose: 0.4 mg Vitamin B Complex/Vit C/Folic Acid (Vitamin B Complex W/Vitamin C) 1 tab PO DAILY [facility] Stop: 02/28/19 08:59 Last Admin: 01/03/19 08:27 Dose: 1 tab Zolpidem Tartrate (Ambien) 5 mg PO HS PRN PRN Reason: Insomnia Stop: 02/27/19 20:54 Last Admin: 12/29/18 21:56 Dose: 5 mg General: demented HEENT: NC/AT, EOMI Neck: Supple Lungs: CTAB Cardiovascular: RRR, Normal S1, Normal S2, with murmur Abdomen: soft, globular, positive bowel sound Extremities: excoriation, contracture Neurological: no change Internal Medicine Assmt/Plan - Assessment Assessment: Dementia and a history of DVT, right lower extremity for exacerbation, CHF, seizure, BPH, GERD. - Plan Plan: PLAN: Continue the patient on low sodium, low cholesterol diet, continue on anticoagulation, ___monitor for_ bleeding. Continue antiepileptic medication. Continue providing him and we will discontinue on potassium, continue on diuretic for now. We will follow the patient closely. Nutritional Asmnt/Malnutr-PDOC - Dietary Evaluation Malnutrition Findings (Please click <Entered> for more info): Nutritional Asmnt/Malnutrition Start: 01/02/19 09: 49 Text: Status: Complete Freq: Protocol: Document 01/02/19 09:49 [facility] (Rec: 01/02/19 10:15 MMULDEQUAN TINSLEY- FNS1) Nutritional Asmnt/Malnutrition Patient General Information Nutritional Screening Moderate Risk Diagnosis Psychosis Pertinent Medical Hx/Surgical Hx right lower extremity DVT, atrial fibrillation, CHF, seizure, BPH, dementia Subjective Information Per nursing notes, patient selectively mute, answers questions with nodding. Patient in bed with covers over his head. Current Diet Order/ Nutrition Support Mechanical soft, no added sodium Patient / S.O Not Indicated Pertinent Medications Vitamin D, Colace, lasix, MOM, Mag ox, Theragran, protonix, vitamin B complex with C Pertinent Labs (12/29) Albumin 3.6 Nutritional Hx/Data Height 5 ft 10 in Height (Calculated Centimeters) 177.8 Current Weight (lbs) 184 lb Weight (Calculated Kilograms) 83.5 Weight (Calculated Grams) 07108.0 [place] Body Weight 166 % [place] Body Weight 110 Body Mass Index (BMI) 26.4 Recent Weight Change No Weight Status Overweight GI Symptoms GI Symptoms None Last BM none noted since admission Difficult in: None Food Allergies No Cultural/Ethnic/Mosque Belief none indicated Usual diet at home unknown Skin Integrity/Comment: Milind 14, intact Current %PO Fair (50-74%) Estimated Nutritional Goals BEE in Kcals: Using Current wt Calories/Kcals/Kg CBW 83.6kg 23-27 kcal/kg Kcals Calculated ~8111-8851 kcal/day Protein: Using Current wt Protein g/k.8-1 gm/kg Protein Calculated 65-85gm/day Fluid: ml ~0057-0913 ml/day Nutritional Problem 1. Problem Problem Inadequate oral intake related to Etiology Possible confusion/poor appetite aeb Signs/Symptoms: PO ranging 0-100% of meals, averaging ~50%. Intervention/Recommendation Comments 1. Continue mechanical soft, no added sodium diet as tolerated by patient. 2. Provide assistance with meals as needed and encourage oral intake. Intake seems to be improving. Re-evaluate need for supplements at F/U. Expected Outcomes/Goals Expected Outcomes/Goals Oral intake >75% of meals, weight stable, nutrition related labs WNL F/U MR
--- NOTE | 2019-01-03 22:35 | Progress Notes ---
DATE: 01/03/2019 SUBJECTIVE: The patient was resting in bed covered from head to toe with a sheet. The patient did not want to remove the sheet from his head and face like he did yesterday. The patient did not respond verbally to any question. The patient indicated that he continued to eat and sleep okay. The patient denied any exposing or masturbating in public since he has been here. Again, the patient was not able to respond when asked why he would do such a thing. OBJECTIVE: The patient appeared to be less cooperative today with the interview. The patient did not want to remove the sheet from of his head and face and did not respond verbally today. Staff reported that the patient has been doing okay, has been eating and sleeping okay, and taking his medication. The patient did not have any episodes of inappropriate sexual behavior yesterday or today. ASSESSMENT: The patient continued to be doing okay with no recurrent inappropriate sexual behavior, which was the reason for his admission. The patient continued to be compliant with his treatment. PLAN: We will continue current treatment and monitor the patient's behavior and response to medication. JOB# [id number] ENRIQUE
[2019-01-04] MEDS: Pantoprazole 40 mg EC Tab PO SCH (06:31)
[2019-01-04] MEDS: Vitamin B Complex w/Vitamin C Tab PO SCH (09:04)
[2019-01-04] MEDS: Aspirin 81mg Chewable Tab PO SCH (09:04)
[2019-01-04] MEDS: Multivitamin Tab PO SCH (09:04)
[2019-01-04] MEDS: Apixaban 5 MG TABLET PO SCH ×2 (09:07→16:32)
--- NOTE | 2019-01-04 12:17 | Psychiatric Evaluation ---
DATE OF SERVICE: PSYCHIATRIC EVALUATION AND MENTAL STATUS EXAMINATION REASON FOR ADMISSION: The patient was admitted for inappropriate sexual behavior masturbating in public. HISTORY OF PRESENT ILLNESS: The patient is an 83-year-old -[place] male from [place]. The patient appeared to be a poor historian. When entered the room, the patient had covered himself with a towel over his head and face. However, the patient was able to follow direction and removed the towel from his face and responded to questions. The patient appeared to be a poor historian. The patient was able to give his name, but not able to say how old he is. He was able to give his birthday. The patient was not able to say why he is here or where he was living prior to coming here. The patient indicated that he lives in an apartment, but not able to say which city he was living. The patient indicated that he was never , no children. The patient was not able to say what kind of work he used to do. The patient reported that he has been eating and sleeping okay. The patient indicated that he is happy. When asked to rate his mood on a 0-10 scale 0 being normal happy, the patient stated 0. PAST PSYCHIATRIC HISTORY: The patient denies any psychiatric problem in self or family. MEDICAL HISTORY: The patient has a history of seizure, AFib, vitamin D deficiency, gastroesophageal reflux, benign prostate hypertrophy. CURRENT MEDICATIONS: Currently the patient is on amiodarone, aspirin, vitamin D3, docusate sodium, Aricept, Avodart, Lasix, Anusol, Keppra, Ativan 0.5 mg q. 4 hours p.r.n., milk of magnesia, mag oxide, Namenda 10 mg b.i.d., multiple vitamin, Protonix, Flomax, vitamin B complex, vitamin C, and Ambien 5 mg p.o. at bedtime p.r.n. SURGICAL HISTORY: The patient was not able to remember what kind of surgery he had. FAMILY HISTORY: The patient reported that he is the younger of 2 boys. EDUCATION HISTORY: The patient reported that he finished high school. MENTAL STATUS EXAM: The patient appeared to be appropriate for stated age. The patient was cooperative, maintained good eye contact. The patient was able to smile on occasion. The patient appeared to be a poor historian. The patient was able to give his name and birthday, but not age. The patient was not able to say why he is here. Short term memory, the patient was able to repeat the 4 items after given to him the first time. However, the patient was unable to recall any of the 4 items after a couple of minutes. When given hints, the patient was able to recall the 4 items. The patient was unable to interpret any of the 3 proverbs. Insight poor. Judgment impaired. Concentration, the patient was able to perform serial 3 subtraction, give an answer of 17 and 15. The patient was able to give appropriate response, when asked what would make him feel better. DIAGNOSTIC IMPRESSION: AXIS I: 1. Alzheimer dementia with behavioral disturbance. 2. Impulse control disorder, not otherwise specified. 3. Personality change due to medical condition. 4. Sexual disorder, not otherwise specified. AXIS II: Deferred AXISIII: Seizure, A Fib, Vit D deficiency, GERD, BPH AXISVI: Medical and Mental Illnesses AXISV: Current 25; Past Year [place] PLAN: We will start the patient on Provera 5 mg p.o. q.a.m. for inappropriate sexual behavior. We will continue other psychotropic medications. We will monitor the patient respond to the medication. ESTIMATED LENGTH OF STAY: 7 to 10 days. DISCHARGE CRITERIA: Include no recurrent inappropriate sexual behavior and continue compliant with care and treatment. [facility]# [id number] ENRIQUE
--- NOTE | 2019-01-04 16:53 | Internal Medicine Prog Note ---
Internal Medicine Subjective - Subjective Service Date: 01/04/19 Patient is:: awake, verbal, interactive, in bed Per staff patient has:: no adverse event, no episodes of fall, tolerating meds Internal Medicine Objective - Results Result Diagrams: 12/29/18 18:17 12/29/18 18:17 Recent Labs: Laboratory Last Values WBC 7.4 Th/cmm (4.8-10.8) 12/29/18 18:17 RBC 5.30 Mil/cmm (3.80-5.80) 12/29/18 18:17 Hgb 14.6 gm/dL (12-16) 12/29/18 18:17 Hct 44.5 % (41.0-60) 12/29/18 18:17 MCV 83.9 fl (80-99) 12/29/18 18:17 MCH 27.5 pg (27.0-31.0) 12/29/18 18:17 MCHC Differential 32.8 pg (28.0-36.0) 12/29/18 18:17 RDW 14.8 % (11.5-20.0) 12/29/18 18:17 Plt Count 232 Th/cmm (150-400) 12/29/18 18:17 MPV 6.8 fl 12/29/18 18:17 Neutrophils % 68.1 % (40.0-80.0) 12/29/18 18:17 Lymphocytes % 21.9 % (20.0-50.0) 12/29/18 18:17 Monocytes % 7.5 % (2.0-10.0) 12/29/18 18:17 Eosinophils % 1.8 % (0.0-5.0) 12/29/18 18:17 Basophils % 0.7 % (0.0-2.0) 12/29/18 18:17 Sodium 144 mEq/L (136-145) 12/29/18 18:17 Potassium 4.6 mEq/L (3.5-5.1) 12/29/18 18:17 Chloride 106 mEq/L (98-107) 12/29/18 18:17 Carbon Dioxide 30.4 mEq/L (21.0-31.0) 12/29/18 18:17 Anion Gap 12.2 (7.0-16.0) 12/29/18 18:17 BUN 16 mg/dL (7-25) 12/29/18 18:17 Creatinine 1.2 mg/dL (0.7-1.3) 12/29/18 18:17 Est GFR ( Amer) TNP 12/29/18 18:17 Est GFR (Non-Af Amer) TNP 12/29/18 18:17 BUN/Creatinine Ratio 13.3 12/29/18 18:17 Glucose 102 mg/dL (70-105) 12/29/18 18:17 Calcium 9.7 mg/dL (8.6-10.3) 12/29/18 18:17 Total Bilirubin 0.4 mg/dL (0.3-1.0) 12/29/18 18:17 AST 14 U/L (13-39) 12/29/18 18:17 ALT 10 U/L (7-52) 12/29/18 18:17 Alkaline Phosphatase 74 U/L (34-104) 12/29/18 18:17 Troponin I 0.01 ng/mL (0.01-0.05) 12/29/18 18:17 Total Protein 7.1 gm/dL (6.0-8.3) 12/29/18 18:17 Albumin 3.6 gm/dL (4.2-5.5) L 12/29/18 18:17 Globulin 3.5 gm/dL 12/29/18 18:17 Albumin/Globulin Ratio 1.0 (1.0-1.8) 12/29/18 18:17 Triglycerides 112 mg/dL (<150) 12/29/18 18:17 Cholesterol 119 mg/dL (<200) 12/29/18 18:17 LDL Cholesterol Direct 38 mg/dL (75-193) L 12/29/18 18:17 HDL Cholesterol 41 mg/dL (23-92) 12/29/18 18:17 TSH 1.50 uIU/ml (0.34-5.60) 12/29/18 18:17 Salicylates < 25.0 mg/L (30.0-100.0) L 12/29/18 18:17 Acetaminophen < 10.0 ug/mL (10.0-30.0) L 12/29/18 18:17 Ethyl Alcohol < 10 mg/dL (0-10) 12/29/18 18:17 RPR NONREACTIVE (NONREACTIVE) 12/29/18 18:17 - Physical Exam Vitals and I&O: Vital Signs Temp 97.9 F 01/04/19 14:00 Pulse 56 01/04/19 14:00 Resp 20 01/04/19 14:00 BP 98/59 01/04/19 14:00 Pulse Ox 97 01/04/19 14:00 Intake & Output 01/03/19 01/04/19 01/04/19 18:59 06:59 18:59 Intake Total 120 Balance 120 Intake: Oral 120 Other: # Voids 3 # Bowel Movements 0 Active Medications: Current Medications Acetaminophen (Tylenol) 650 mg PO Q6H PRN PRN Reason: pain/fever>100 Amiodarone HCl (Cordarone) 200 mg PO DAILY [facility] Stop: 02/28/19 08:59 Last Admin: 01/04/19 09:06 Dose: Not Given Aspirin (Aspirin Chewable) 81 mg PO DAILY [facility] Stop: 02/28/19 08:59 Last Admin: 01/04/19 09:04 Dose: 81 mg Cholecalciferol (Vitamin D3) 2,000 iu PO DAILY [facility] Stop: 02/28/19 08:59 Last Admin: 01/04/19 09:07 Dose: 2,000 iu Docusate Sodium (Colace) 100 mg PO BID [facility] Stop: 02/28/19 08:59 Last Admin: 01/04/19 16:31 Dose: 100 mg Donepezil HCl (Aricept) 5 mg PO HS [facility] Stop: 02/27/19 20:59 Last Admin: 01/03/19 20:47 Dose: 5 mg Dutasteride (Avodart) 0.5 mg PO DAILY [facility]; Protocol Stop: 02/28/19 08:59 Last Admin: 01/04/19 09:06 Dose: 0.5 mg Furosemide (Lasix) 20 mg PO DAILY [facility] Stop: 02/28/19 08:59 Last Admin: 01/04/19 09:05 Dose: 20 mg Hydrocortisone (Anusol-Hc) 25 mg RC HS PRN PRN Reason: Hemorrhoids Stop: 02/27/19 22:34 Levetiracetam (Keppra) 500 mg PO BID [facility] Stop: 02/28/19 08:59 Last Admin: 01/04/19 16:31 Dose: 500 mg Lorazepam (Ativan) 0.5 mg PO Q4HR PRN; Protocol PRN Reason: Anxiety Stop: 01/28/19 20:54 Magnesium Hydroxide (Milk Of Magnesia) 30 ml PO DAILY PRN PRN Reason: Constipation Stop: 02/27/19 22:34 Magnesium Oxide (Mag-Oxide) 400 mg PO DAILY [facility] Stop: 02/28/19 08:59 Last Admin: 01/04/19 09:05 Dose: 400 mg Medroxyprogesterone Acetate (Provera) 5 mg PO DAILY [facility]; Protocol Stop: 03/02/19 08:59 Last Admin: 01/04/19 09:04 Dose: 5 mg Memantine (Namenda) 10 mg PO BID [facility] Stop: 02/28/19 08:59 Last Admin: 01/04/19 16:31 Dose: 10 mg Multivitamins/Vitamin C (Theragran) 1 tab PO DAILY [facility] Stop: 02/28/19 08:59 Last Admin: 01/04/19 09:04 Dose: 1 tab Pantoprazole Sodium (Protonix) 40 mg PO QDAC [facility] Stop: 02/28/19 07:29 Last Admin: 01/04/19 06:31 Dose: 40 mg Tamsulosin HCl (Flomax) 0.4 mg PO HS [facility] Stop: 02/28/19 20:59 Last Admin: 01/03/19 20:47 Dose: 0.4 mg Vitamin B Complex/Vit C/Folic Acid (Vitamin B Complex W/Vitamin C) 1 tab PO DAILY [facility] Stop: 02/28/19 08:59 Last Admin: 01/04/19 09:04 Dose: 1 tab Zolpidem Tartrate (Ambien) 5 mg PO HS PRN PRN Reason: Insomnia Stop: 02/27/19 20:54 Last Admin: 12/29/18 21:56 Dose: 5 mg General: demented HEENT: NC/AT, EOMI Neck: Supple Lungs: CTAB Cardiovascular: RRR, Normal S1, Normal S2, with murmur Abdomen: soft, globular, positive bowel sound Extremities: excoriation, contracture Neurological: no change Internal Medicine Assmt/Plan - Assessment Assessment: Dementia and a history of DVT, right lower extremity for exacerbation, CHF, seizure, BPH, GERD. - Plan Plan: PLAN: Continue the patient on low sodium, low cholesterol diet, continue on anticoagulation, ___monitor for_ bleeding. Continue antiepileptic medication. Continue providing him and we will discontinue on potassium, continue on diuretic for now. We will follow the patient closely. Nutritional Asmnt/Malnutr-PDOC - Dietary Evaluation Malnutrition Findings (Please click <Entered> for more info): Nutritional Asmnt/Malnutrition Start: 01/02/19 09: 49 Text: Status: Complete Freq: Protocol: Document 01/02/19 09:49 [facility]ID (Rec: 01/02/19 10:15 MMULDEQUAN TINSLEY- [email or web address]) Nutritional Asmnt/Malnutrition Patient General Information Nutritional Screening Moderate Risk Diagnosis Psychosis Pertinent Medical Hx/Surgical Hx right lower extremity DVT, atrial fibrillation, CHF, seizure, BPH, dementia Subjective Information Per nursing notes, patient selectively mute, answers questions with nodding. Patient in bed with covers over his head. Current Diet Order/ Nutrition Support Mechanical soft, no added sodium Patient / S.O Not Indicated Pertinent Medications Vitamin D, Colace, lasix, MOM, Mag ox, Theragran, protonix, vitamin B complex with C Pertinent Labs (12/29) Albumin 3.6 Nutritional Hx/Data Height 5 ft 10 in Height (Calculated Centimeters) 177.8 Current Weight (lbs) 184 lb Weight (Calculated Kilograms) 83.5 Weight (Calculated Grams) 49595.0 [place] Body Weight 166 % [place] Body Weight 110 Body Mass Index (BMI) 26.4 Recent Weight Change No Weight Status Overweight GI Symptoms GI Symptoms None Last BM none noted since admission Difficult in: None Food Allergies No Cultural/Ethnic/Sikh Belief none indicated Usual diet at home unknown Skin Integrity/Comment: Milind 14, intact Current %PO Fair (50-74%) Estimated Nutritional Goals BEE in Kcals: Using Current wt Calories/Kcals/Kg CBW 83.6kg 23-27 kcal/kg Kcals Calculated ~8673-7597 kcal/day Protein: Using Current wt Protein g/k.8-1 gm/kg Protein Calculated 65-85gm/day Fluid: ml ~1628-7250 ml/day Nutritional Problem 1. Problem Problem Inadequate oral intake related to Etiology Possible confusion/poor appetite aeb Signs/Symptoms: PO ranging 0-100% of meals, averaging ~50%. Intervention/Recommendation Comments 1. Continue mechanical soft, no added sodium diet as tolerated by patient. 2. Provide assistance with meals as needed and encourage oral intake. Intake seems to be improving. Re-evaluate need for supplements at F/U. Expected Outcomes/Goals Expected Outcomes/Goals Oral intake >75% of meals, weight stable, nutrition related labs WNL F/U MR
--- NOTE | 2019-01-05 03:09 | Progress Notes ---
DATE: 01/04/2019 SUBJECTIVE: Staff was spoken to. The patient is interviewed. Mood is noted to be less irritable today. Insight and judgment are noted to be improving. Impulse control seems to be fair. The patient has been noted to be laughing and giggling, but no major behavioral problems are reported by the staff. The patient is currently on only the donepezil and also is being medicated with lorazepam as needed. No major behavioral problems are noted at this time. The patient continues to be having problem with the memory. No inappropriate sexual behavior is reported. He has been observed by the staff members and plan to closely monitor the patient. I encouraged the patient to verbalize the concerns rather than to act out. ASSESSMENT: The patient's impulsivity is coming under control. PLAN: The patient has already been placed on the medroxyprogesterone 5 mg daily to contain these inappropriate behavior and the patient is going to be closely monitored and followed up. [facility]# [id number]
--- NOTE | 2019-01-05 04:50 | Consultation ---
DATE OF CONSULTATION: 01/02/2019 REFERRING PHYSICIAN: Lizzy Wise M.D. TYPE OF CONSULTATION: Psychology. HISTORY OF PRESENT ILLNESS: The patient is an 83-year-old -[place] male. The patient resides at a Residential Facility. The following is by record review and by the patient's self-report. The patient is being admitted due to increased agitation as well as inappropriate sexual behavior, i.e., exposing himself and public masturbation at his facility. The patient denied this incident. The patient is conserved. The patient denied any suicidal ideation, plan, or intention at the time of this clinical interview. The patient is depressed and withdrawn. The patient is not providing much information. PAST MEDICAL HISTORY: Please see history and physical by Dr. Kam. PAST PSYCHIATRIC HISTORY: Records are unavailable. Details are unknown. SUBSTANCE ABUSE HISTORY: The patient declined to answer these questions. PSYCHOSOCIAL HISTORY: The patient did not answer questions about occupational or educational history: The patient states that he is a Orthodox. Record review indicates the patient is conserved and the conservator is Nikunj Allen. Case management will contact the conservator. The patient denied any history of physical or sexual abuse. He denies any current legal problems. MENTAL STATUS EXAMINATION: The patient appears to be his stated age. The patient's attitude is guarded. The patient's speech is selectively mute. Eye contact is poor. Mood is depressed. Affect is constricted. Thought process shows to be confused. The patient denied experiencing any auditory or visual hallucinations. The patient's behavior has been withdrawn and isolative on the unit. The patient's most recent history includes public masturbation and exposing himself at his placement. The patient denied this history. Impulse control is inadequate. Concentration is poor. The patient did not participate in the memory assessment. He did not participate in the interpretation of proverbs. Sensorium is alert and oriented to self only. Insight is poor. Judgment is impaired. DIAGNOSTIC IMPRESSION: AXIS I: 1. Sexual disorder, not otherwise specified. 2. Dementia with behavioral disturbance. AXIS II: Deferred. AXIS III: Per Dr. Kam. TREATMENT PLAN: The patient has been seen by Dr. Muir for psychiatric evaluation and for the management of the patient's psychotropic medications. The patient is started on Provera according to the attending psychiatrist. We will provide supportive psychotherapy to include de-escalation and limit setting. We will encourage the patient to demonstrate emotional and self-regulation and to verbalize his concerns versus acting out. We will provide motivational enhancement for the patient to become compliant and stay compliant with all aspects of his care and treatment. We will provide coping strategies for phase of life issues as well as for chronic mental illness. We will continue with behavioral management with respect to the patient's poor impulse control and provide stress management to increase the patient's frustration tolerance, decrease his impulsivity, and inappropriate sexual behavior. Thank you, Dr. Muir, for this consult and the opportunity to participate in this patient's care. JOB# [id number] ENRIQUE
[2019-01-05] MEDS: Pantoprazole 40 mg EC Tab PO SCH (06:44)
[2019-01-05] MEDS: Apixaban 5 MG TABLET PO SCH (09:12)
[2019-01-05] MEDS: Aspirin 81mg Chewable Tab PO SCH (09:13)
[2019-01-05] MEDS: Multivitamin Tab PO SCH (09:14)
[2019-01-05] MEDS: Vitamin B Complex w/Vitamin C Tab PO SCH (09:14)
--- NOTE | 2019-01-05 14:04 | Internal Medicine Prog Note ---
Internal Medicine Subjective - Subjective Service Date: 01/05/19 Patient is:: awake, verbal, interactive, in bed Per staff patient has:: no adverse event, no episodes of fall, tolerating meds Internal Medicine Objective - Results Result Diagrams: 12/29/18 18:17 12/29/18 18:17 Recent Labs: Laboratory Last Values WBC 7.4 Th/cmm (4.8-10.8) 12/29/18 18:17 RBC 5.30 Mil/cmm (3.80-5.80) 12/29/18 18:17 Hgb 14.6 gm/dL (12-16) 12/29/18 18:17 Hct 44.5 % (41.0-60) 12/29/18 18:17 MCV 83.9 fl (80-99) 12/29/18 18:17 MCH 27.5 pg (27.0-31.0) 12/29/18 18:17 MCHC Differential 32.8 pg (28.0-36.0) 12/29/18 18:17 RDW 14.8 % (11.5-20.0) 12/29/18 18:17 Plt Count 232 Th/cmm (150-400) 12/29/18 18:17 MPV 6.8 fl 12/29/18 18:17 Neutrophils % 68.1 % (40.0-80.0) 12/29/18 18:17 Lymphocytes % 21.9 % (20.0-50.0) 12/29/18 18:17 Monocytes % 7.5 % (2.0-10.0) 12/29/18 18:17 Eosinophils % 1.8 % (0.0-5.0) 12/29/18 18:17 Basophils % 0.7 % (0.0-2.0) 12/29/18 18:17 Sodium 144 mEq/L (136-145) 12/29/18 18:17 Potassium 4.6 mEq/L (3.5-5.1) 12/29/18 18:17 Chloride 106 mEq/L (98-107) 12/29/18 18:17 Carbon Dioxide 30.4 mEq/L (21.0-31.0) 12/29/18 18:17 Anion Gap 12.2 (7.0-16.0) 12/29/18 18:17 BUN 16 mg/dL (7-25) 12/29/18 18:17 Creatinine 1.2 mg/dL (0.7-1.3) 12/29/18 18:17 Est GFR ( Amer) TNP 12/29/18 18:17 Est GFR (Non-Af Amer) TNP 12/29/18 18:17 BUN/Creatinine Ratio 13.3 12/29/18 18:17 Glucose 102 mg/dL (70-105) 12/29/18 18:17 Calcium 9.7 mg/dL (8.6-10.3) 12/29/18 18:17 Total Bilirubin 0.4 mg/dL (0.3-1.0) 12/29/18 18:17 AST 14 U/L (13-39) 12/29/18 18:17 ALT 10 U/L (7-52) 12/29/18 18:17 Alkaline Phosphatase 74 U/L (34-104) 12/29/18 18:17 Troponin I 0.01 ng/mL (0.01-0.05) 12/29/18 18:17 Total Protein 7.1 gm/dL (6.0-8.3) 12/29/18 18:17 Albumin 3.6 gm/dL (4.2-5.5) L 12/29/18 18:17 Globulin 3.5 gm/dL 12/29/18 18:17 Albumin/Globulin Ratio 1.0 (1.0-1.8) 12/29/18 18:17 Triglycerides 112 mg/dL (<150) 12/29/18 18:17 Cholesterol 119 mg/dL (<200) 12/29/18 18:17 LDL Cholesterol Direct 38 mg/dL (75-193) L 12/29/18 18:17 HDL Cholesterol 41 mg/dL (23-92) 12/29/18 18:17 TSH 1.50 uIU/ml (0.34-5.60) 12/29/18 18:17 Salicylates < 25.0 mg/L (30.0-100.0) L 12/29/18 18:17 Acetaminophen < 10.0 ug/mL (10.0-30.0) L 12/29/18 18:17 Ethyl Alcohol < 10 mg/dL (0-10) 12/29/18 18:17 RPR NONREACTIVE (NONREACTIVE) 12/29/18 18:17 - Physical Exam Vitals and I&O: Vital Signs Temp 97.9 F 01/04/19 14:00 Pulse 56 01/04/19 14:00 Resp 19 01/04/19 20:00 BP 98/59 01/04/19 14:00 Pulse Ox 97 01/04/19 14:00 Intake & Output 01/04/19 01/05/19 01/05/19 18:59 06:59 18:59 Intake Total 960 Balance 960 Intake: Oral 960 Other: # Voids 3 # Bowel Movements 1 Active Medications: Current Medications Acetaminophen (Tylenol) 650 mg PO Q6H PRN PRN Reason: pain/fever>100 Amiodarone HCl (Cordarone) 200 mg PO DAILY [facility] Stop: 02/28/19 08:59 Last Admin: 01/05/19 09:12 Dose: Not Given Aspirin (Aspirin Chewable) 81 mg PO DAILY [facility] Stop: 02/28/19 08:59 Last Admin: 01/05/19 09:13 Dose: 81 mg Cholecalciferol (Vitamin D3) 2,000 iu PO DAILY [facility] Stop: 02/28/19 08:59 Last Admin: 01/05/19 09:13 Dose: 2,000 iu Docusate Sodium (Colace) 100 mg PO BID [facility] Stop: 02/28/19 08:59 Last Admin: 01/05/19 09:13 Dose: 100 mg Donepezil HCl (Aricept) 5 mg PO HS [facility] Stop: 02/27/19 20:59 Last Admin: 01/04/19 21:28 Dose: 5 mg Dutasteride (Avodart) 0.5 mg PO DAILY [facility]; Protocol Stop: 02/28/19 08:59 Last Admin: 01/05/19 09:13 Dose: 0.5 mg Furosemide (Lasix) 20 mg PO DAILY [facility] Stop: 02/28/19 08:59 Last Admin: 01/05/19 09:13 Dose: Not Given Hydrocortisone (Anusol-Hc) 25 mg RC HS PRN PRN Reason: Hemorrhoids Stop: 02/27/19 22:34 Levetiracetam (Keppra) 500 mg PO BID [facility] Stop: 02/28/19 08:59 Last Admin: 01/05/19 09:13 Dose: 500 mg Lorazepam (Ativan) 0.5 mg PO Q4HR PRN; Protocol PRN Reason: Anxiety Stop: 01/28/19 20:54 Magnesium Hydroxide (Milk Of Magnesia) 30 ml PO DAILY PRN PRN Reason: Constipation Stop: 02/27/19 22:34 Magnesium Oxide (Mag-Oxide) 400 mg PO DAILY [facility] Stop: 02/28/19 08:59 Last Admin: 01/05/19 09:13 Dose: 400 mg Medroxyprogesterone Acetate (Provera) 5 mg PO DAILY [facility]; Protocol Stop: 03/02/19 08:59 Last Admin: 01/05/19 09:13 Dose: 5 mg Memantine (Namenda) 10 mg PO BID [facility] Stop: 02/28/19 08:59 Last Admin: 01/05/19 09:13 Dose: 10 mg Multivitamins/Vitamin C (Theragran) 1 tab PO DAILY [facility] Stop: 02/28/19 08:59 Last Admin: 01/05/19 09:14 Dose: 1 tab Pantoprazole Sodium (Protonix) 40 mg PO QDAC [facility] Stop: 02/28/19 07:29 Last Admin: 01/05/19 06:44 Dose: 40 mg Tamsulosin HCl (Flomax) 0.4 mg PO HS [facility] Stop: 02/28/19 20:59 Last Admin: 01/04/19 21:28 Dose: 0.4 mg Vitamin B Complex/Vit C/Folic Acid (Vitamin B Complex W/Vitamin C) 1 tab PO DAILY [facility] Stop: 02/28/19 08:59 Last Admin: 01/05/19 09:14 Dose: 1 tab Zolpidem Tartrate (Ambien) 5 mg PO HS PRN PRN Reason: Insomnia Stop: 02/27/19 20:54 Last Admin: 12/29/18 21:56 Dose: 5 mg General: demented HEENT: NC/AT, EOMI Neck: Supple Lungs: CTAB Cardiovascular: RRR, Normal S1, Normal S2, with murmur Abdomen: soft, globular, positive bowel sound Extremities: excoriation, contracture Neurological: no change Internal Medicine Assmt/Plan - Assessment Assessment: Dementia and a history of DVT, right lower extremity for exacerbation, CHF, seizure, BPH, GERD. - Plan Plan: PLAN: Continue the patient on low sodium, low cholesterol diet, continue on anticoagulation, ___monitor for_ bleeding. Continue antiepileptic medication. Continue providing him and we will discontinue on potassium, continue on diuretic for now. We will follow the patient closely. Nutritional Asmnt/Malnutr-PDOC - Dietary Evaluation Malnutrition Findings (Please click <Entered> for more info): Nutritional Asmnt/Malnutrition Start: 01/02/19 09: 49 Text: Status: Complete Freq: Protocol: Document 01/02/19 09:49 [facility] (Rec: 01/02/19 10:15 MMULDEQUAN TINSLEY- FNS1) Nutritional Asmnt/Malnutrition Patient General Information Nutritional Screening Moderate Risk Diagnosis Psychosis Pertinent Medical Hx/Surgical Hx right lower extremity DVT, atrial fibrillation, CHF, seizure, BPH, dementia Subjective Information Per nursing notes, patient selectively mute, answers questions with nodding. Patient in bed with covers over his head. Current Diet Order/ Nutrition Support Mechanical soft, no added sodium Patient / S.O Not Indicated Pertinent Medications Vitamin D, Colace, lasix, MOM, Mag ox, Theragran, protonix, vitamin B complex with C Pertinent Labs (12/29) Albumin 3.6 Nutritional Hx/Data Height 5 ft 10 in Height (Calculated Centimeters) 177.8 Current Weight (lbs) 184 lb Weight (Calculated Kilograms) 83.5 Weight (Calculated Grams) 95692.0 [place] Body Weight 166 % [place] Body Weight 110 Body Mass Index (BMI) 26.4 Recent Weight Change No Weight Status Overweight GI Symptoms GI Symptoms None Last BM none noted since admission Difficult in: None Food Allergies No Cultural/Ethnic/Mandaen Belief none indicated Usual diet at home unknown Skin Integrity/Comment: Milind 14, intact Current %PO Fair (50-74%) Estimated Nutritional Goals BEE in Kcals: Using Current wt Calories/Kcals/Kg CBW 83.6kg 23-27 kcal/kg Kcals Calculated ~6154-1245 kcal/day Protein: Using Current wt Protein g/k.8-1 gm/kg Protein Calculated 65-85gm/day Fluid: ml ~7987-8746 ml/day Nutritional Problem 1. Problem Problem Inadequate oral intake related to Etiology Possible confusion/poor appetite aeb Signs/Symptoms: PO ranging 0-100% of meals, averaging ~50%. Intervention/Recommendation Comments 1. Continue mechanical soft, no added sodium diet as tolerated by patient. 2. Provide assistance with meals as needed and encourage oral intake. Intake seems to be improving. Re-evaluate need for supplements at F/U. Expected Outcomes/Goals Expected Outcomes/Goals Oral intake >75% of meals, weight stable, nutrition related labs WNL F/U MR
--- NOTE | 2019-01-05 18:39 | Progress Notes ---
DATE: 01/04/2019 PSYCHOLOGY PROGRESS NOTE SUBJECTIVE: The patient is seen and is interviewed. Case is discussed with staff. The patient seems to be calmer this visit; however, the patient is not responding verbally most of the time and the patient continues to laugh inappropriately. The staff reports no inappropriate sexual behavior. OBJECTIVE: Mood is less irritable. Affect is blunted. Thought process shows to be confused. The patient denied any auditory or visual hallucinations or delusions. The patient's behavior has been generally compliant with his care and includes no inappropriate sexual behavior or sexual comments. ASSESSMENT AND PLAN: The patient's impulsivity is stabilizing. We provided positive reinforcement for the patient to stay compliant with his care and treatment. We reviewed limit setting as well as boundary definitions and boundary awareness with respect to the patient's past inappropriate sexual behavior. We provided re-motivation for the patient to verbalize his concerns versus acting out and to demonstrate emotional and self-regulation. We provided coping strategies for phase of life issues as well. We will follow up in 2 days to continue the present treatment if the patient is still admitted on the unit. The patient may discharge today according to the staff. JOB# [id number] ENRIQUE
--- NOTE | 2019-01-06 06:11 | Progress Notes ---
DATE: 01/05/2019 PSYCHIATRIC PROGRESS NOTE SUBJECTIVE: Staff was spoken to. The patient is interviewed. Mood is noted to be anxious. Affect is appropriate. Not suicidal or homicidal. Insight and judgment at this time are noted to be improving. Impulse control seems to be fair. Coping skills are also noted to be fair. The patient has been able to participate in the groups. No side effects to the medications are noted. ASSESSMENT: The patient is stabilizing. PLAN: To discharge the patient today for followup on outpatient basis. [facility]# [id number]
== END 2019-01-05 15:15 | DRG 57 ==
LOC: ER 17:03 → GERO2 19:30
PROVIDERS: ADMIT Psychiatry & Neurology Psychiatry; ATTEND Psychiatry & Neurology Psychiatry
DX: G30.9 Alzheimer's disease, unspecified (principal); F02.81 Dementia in other diseases classified elsewhere, unspecified severity, with behavioral disturbance; I11.0 Hypertensive heart disease with heart failure; F31.9 Bipolar disorder, unspecified; F63.9 Impulse disorder, unspecified; I48.91 Unspecified atrial fibrillation; I50.9 Heart failure, unspecified; R56.9 Unspecified convulsions; N40.0 Benign prostatic hyperplasia without lower urinary tract symptoms; K21.9 Gastro-esophageal reflux disease without esophagitis; E55.9 Vitamin D deficiency, unspecified; Z88.0 Allergy status to penicillin; Z86.718 Personal history of other venous thrombosis and embolism; Z79.01 Long term (current) use of anticoagulants
CPT/HCPCS: 36415-UA; 80053-TC; 80061-TC; 80320-TC; 80329-TC; 83036-90; 84443-TC; 84484-TC; 85025-TC; 86592-TC; 93005; Z7610